=== PATIENT | male | born 1995 | race Caucasian/White ===

== ENCOUNTER 2016-12-04 15:56 | Emergency (ER) | payer OTHER ==
[2016-12-04 16:04] VITALS: BP 123/82; PULSE 88; RESP 16; TEMP 98.6; O2SAT 95
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
== END 2016-12-04 16:36 | disposition home or self-care (01) ==
DX: S50.311A Abrasion of right elbow, initial encounter (principal); V48.5XXA Car driver injured in noncollision transport accident in traffic accident, initial encounter; Y92.410 Unspecified street and highway as the place of occurrence of the external cause